=== PATIENT | female | born 1970 | race Two or more races ===

== ENCOUNTER 2021-05-14 05:30 | Emergency (ER) | payer OTHER ==
[~2021-05-14] VITALS: Ht 157.5 cm; Wt 68.0 kg
[2021-05-14] MEDS ORDERED: NORFLEX100MG PO (11:39)
[2021-05-14] MEDS ORDERED: KETO10TA2 PO (11:39)
== END 2021-05-14 12:59 | disposition home or self-care (01) ==
LOC: ER 05:30
DX: S80.02XA Contusion of left knee, initial encounter (principal); S70.02XA Contusion of left hip, initial encounter; W19.XXXA Unspecified fall, initial encounter; Y93.89 Activity, other specified; Y92.89 Other specified places as the place of occurrence of the external cause; Y99.8 Other external cause status